=== PATIENT | male | born 1960 | race Caucasian/White ===

== ENCOUNTER 2019-06-16 12:56 | Inpatient (IN) | payer OTHER ==
[~2019-06-16] VITALS: Ht 170.2 cm; Wt 104.3 kg
[2019-06-16] MEDS ORDERED: CATAPRES0.2 MG PO (13:12)
[2019-06-16] MEDS ORDERED: AVAPRO300 MG PO (13:12)
[2019-06-27] MEDS ORDERED: AVAPRO300 MG PO (13:52)
[2019-06-27] MEDS ORDERED: DOXAZOSIN MESYLA8 MG PO (13:52)
[2019-06-27] MEDS ORDERED: SPIRONOLACTONE50 MG PO (13:53)
[2019-06-27] MEDS ORDERED: CLONIDINE HCL0.1 MG PO (13:55)
[2019-06-27] MEDS ORDERED: HYDRALAZINE HCL50 MG PO (13:55)
[2019-06-27] MEDS ORDERED: TRAZODONE HCL50 MG PO (13:55)
[2019-06-27] MEDS ORDERED: QUETIAPINE FUMA25 MG PO (13:55)
[2019-06-27] MEDS ORDERED: LEVOTHYROXINE200 MCG PO (13:56)
== END 2019-06-27 15:52 | disposition home or self-care (01) | DRG 305 ==
LOC: ER 12:56 → ICU-2 20:38 → SURG 06-17 14:05 → SURH 06-21 18:27 → SURG 06-21 20:02 → MEDJ 06-23 11:58
PROVIDERS: ADMIT Internal Medicine
PROC: BW28ZZZ Computerized Tomography (CT Scan) of Head (ICD-10-PCS; principal; 2019-06-16)
PROC: 4A12X4Z Monitoring of Cardiac Electrical Activity, External Approach (ICD-10-PCS; 2019-06-17)
PROC: 4A033R1 Measurement of Arterial Saturation, Peripheral, Percutaneous Approach (ICD-10-PCS; 2019-06-17)
PROC: B246ZZZ Ultrasonography of Right and Left Heart (ICD-10-PCS; 2019-06-19)
DX: I11.9 Hypertensive heart disease without heart failure (principal); J90 Pleural effusion, not elsewhere classified; E87.3 Alkalosis; I70.0 Atherosclerosis of aorta; I12.9 Hypertensive chronic kidney disease with stage 1 through stage 4 chronic kidney disease, or unspecified chronic kidney disease; N18.3 Chronic kidney disease, stage 3 (moderate); R31.29 Other microscopic hematuria; E03.8 Other specified hypothyroidism; G47.33 Obstructive sleep apnea (adult) (pediatric); E87.6 Hypokalemia; E66.09 Other obesity due to excess calories